=== PATIENT | female | born 2000 | race Caucasian/White ===

== ENCOUNTER 2023-01-03 13:58 | Inpatient (IN) ==
[2023-01-03] MEDS ORDERED: Lactated Ringers 1000 ml BAG 1,000 ML IV ONE ×2 (15:33→21:16)
[2023-01-03] MEDS ORDERED: Promethazine INJ(RESTRICTED) 25 MG/ML 1 ml VIAL IV PRN (15:33)
[2023-01-03] MEDS ORDERED: Lidocaine 1% VIAL 10 MG/ML 30 ML VIAL INJ PRN (15:33)
[2023-01-03] MEDS ORDERED: Buffered Lidocaine 1% SYRIN 1 ml INTRADERM ONE (15:33)
[2023-01-03 17:50] LABS: ABS Eosinophils 0.1 10^3/uL (0.0-0.5); ABS Lymphocytes 2.7 10^3/uL (1.0-4.8); ABS Monocytes 1.2 10^3/uL (0.0-0.9); ABS Neutrophils 8.8 10^3/uL (1.5-7.6); Eosinophil % 0.8 %; Hematocrit 31.7 % (35-45); Hemoglobin 11.4 g/dL (11.5-14.3); Lymphocyte % 20.8 %; Mean Corpuscular Hemoglobin 31.1 pg (27-33); Mean Corpuscular Hgb Conc 35.9 g/dL (31-36); Mean Corpuscular Volume 86.6 fL (80-97); Mean Platelet Volume 8.6 fL (7.5-11.2); Platelet Count 355 10^3/uL (150-450); Red Blood Count 3.65 10^6/uL (3.63-4.92); Red Cell Distribution Width 13.3 % (12-17); White Blood Count 12.8 10^3/uL (3.8-11.8)
[2023-01-03 17:57] LABS: Albumin 3.6 g/dL (3.2-5.2); Calcium 10.8 mg/dL (8.6-10.3); Total Bilirubin 0.4 mg/dL (0.2-1.0)
[2023-01-03 18:03] LABS: Albumin/Globulin Ratio 1.2 (1-3); Creatinine, Serum 0.75 mg/dL (0.51-0.95); Globulin 2.9 g/dL (2-4); Total Protein 6.5 g/dL (6.4-8.9); eGFR CKD-EPI 113.9 (>60)
[2023-01-03 18:46] LABS: Urine Benzodiazepine Screen None Detected (None Detect); Urine Cannabinoids Screen None Detected (None Detect); Urine Opiates Screen None Detected (None Detect)
[2023-01-03] MEDS ORDERED: Famotidine IV 10 MG/ML 2 ml VIAL (20 mg) IV SLOW PU ONE (19:31)
[2023-01-03] MEDS: Lactated Ringers 1000 ml BAG 1,000 ML IV SCH ×2 (19:51→20:49)
[2023-01-03] MEDS ORDERED: OBEPIDURAL (200 ML) 200 ML EPIDURAL ONE (19:55)
[2023-01-03] MEDS ORDERED: Sodium Citrate/Citric Acid LIQ 15 ML UDC PO PRN (21:16)
[2023-01-03 21:32] LABS: Urine Appearance Clear; Urine Bilirubin Negative (Negative); Urine Blood 2+ (Negative); Urine Color Straw; Urine Glucose Negative (Negative); Urine Ketones Negative (Negative); Urine Nitrite Negative (Negative); Urine Protein Negative (Negative); Urine Specific Gravity 1.003 (1.002-1.030); Urine Urobilinogen Negative (Negative)
[2023-01-03 21:38] LABS: Urine Bacteria Absent (Absent); Urine Red Blood Cell Trace(0-2/hpf) (Absent); Urine White Blood Cell 3+(>20/hpf) (Absent)
[2023-01-03] MEDS ORDERED: Lactated Ringers 1000 ml BAG 1,000 ML IV SCH (22:00)
[2023-01-03] MEDS ORDERED: OBEPIDURAL (200 ML) 200 ML EPIDURAL SCH (22:00)
[2023-01-04] MEDS ORDERED: Witch Hazel PAD JAR TOPICAL PRN (00:17)
[2023-01-04] MEDS ORDERED: Glycerin ADULT 2.4 gm SUPP PR PRN (00:17)
[2023-01-04] MEDS ORDERED: Dibucaine 1% OINT 28.35 GM TUBE PR PRN (00:17)
[2023-01-04] MEDS ORDERED: Lactated Ringers 1000 ml BAG 1,000 ML IV SCH (01:00)
[2023-01-04 08:59] LABS: ABS Basophils 0.1 10^3/uL (0.0-0.1); ABS Eosinophils 0.2 10^3/uL (0.0-0.5); ABS Lymphocytes 3.1 10^3/uL (1.0-4.8); ABS Monocytes 1.2 10^3/uL (0.0-0.9); ABS Neutrophils 9.2 10^3/uL (1.5-7.6); ABS Nucleated RBC 0.01 10^3/ul; Eosinophil % 1.3 %; Hemoglobin 9.9 g/dL (11.5-14.3); Lymphocyte % 22.3 %; Mean Corpuscular Hemoglobin 30.8 pg (27-33); Mean Corpuscular Hgb Conc 35.2 g/dL (31-36); Mean Corpuscular Volume 87.6 fL (80-97); Mean Platelet Volume 8.2 fL (7.5-11.2); Platelet Count 259 10^3/uL (150-450); Red Cell Distribution Width 13.4 % (12-17); White Blood Count 13.8 10^3/uL (3.8-11.8)
[2023-01-04] MEDS: Calcium Carb (TUMS) 500 mg CHEW TAB PO PRN (19:41)
[2023-01-05] MEDS: Calcium Carb (TUMS) 500 mg CHEW TAB PO PRN (08:09)
[2023-01-05 08:25] VITALS: BP 140/82
== END 2023-01-05 13:00 | disposition home or self-care (01) | DRG 807 ==
LOC: MCHOBOUT 13:58 → MCHOB 15:33
PROVIDERS: ADMIT Advanced Practice Midwife; ATTEND Advanced Practice Midwife